=== PATIENT | male | born 1985 | race Caucasian/White ===

== ENCOUNTER 2020-04-29 23:35 | Emergency (ER) | payer SELFPAY ==
[~2020-04-29] VITALS: Ht 180.3 cm; Wt 77.1 kg
--- NOTE | 2020-04-30 00:15 | NUR ---
PATIENT WAS MSE BY DR SANTIAGO IN ROOM 03A.
[2020-04-30] MEDS ORDERED: KETOROLAC TROMETHAMINE 15 MG INJ ONE (00:24)
[2020-04-30] MEDS ORDERED: KETOROLAC TROMETHAMINE 15 MG INJ IM ONE (00:30)
[2020-04-30 00:39] VITALS: BP 138/77
--- NOTE | 2020-04-30 00:40 | NUR ---
Patient discharged to home in stable condition. Written and verbal after care instructions given. Patient verbalizes understanding of instructions. Stressed follow up or return to ER for worsening s/s.
== END 2020-04-30 00:41 | disposition home or self-care (01) ==
LOC: ER 23:42
DX: R50.9 Fever, unspecified (principal); R51 Headache; R06.02 Shortness of breath; Z20.828 Contact with and (suspected) exposure to other viral communicable diseases
CPT/HCPCS: 96372; 99283; J1885; A4663